=== PATIENT | male | born 1975 | race Caucasian/White ===

== ENCOUNTER 2021-08-02 20:54 | Emergency (ER) | payer BC ==
--- NOTE | 2021-08-03 01:33 | CR ---
INDICATION: cough/fever/chills for 4 days CHEST, PA AND LATERAL Upright PA and lateral radiographs of the chest were performed. Comparison: No previous studies are currently available for comparison. The lungs appear clear and there are no pleural effusions. Heart size and pulmonary vasculature appear normal. Visualized bones show no significant findings. IMPRESSION: No acute intrathoracic abnormality identified. GAVIN CURRY MD [facility] Dictated by: Brock Curry MD @ 08/03/2021 01:31:35 (Electronically Signed)
--- NOTE | 2021-08-03 02:07 | EDM.PDOC ---
ED HPI GENERAL MEDICAL PROBLEM - General Chief Complaint: Respiratory Problem Stated Complaint: HEADACHE, CHILLS, FEVER Time Seen by Provider: 08/03/21 01:13 - History of Present Illness INITIAL COMMENTS - FREE TEXT/NARRATIVE: HISTORY AND PHYSICAL: History of present illness: Is a 45-year-old gentleman with no significant past medical history who presents ER today with Covid concerns. Patient ports had headache, tactile fevers, generalized body aches for 4 days. Patient denies any nausea, vomiting, diarrhea, dysuria, frequency, urgency. Patient reports occasional cough. Patient has any shortness of breath. Patient reports came to the ED today because his symptoms have persisted for approximately 4 days which is unusual for him. Patient has not had his Covid vaccine. Patient reports he is tolerating p.o. solids and liquids well. Review of systems: As per history of present illness and below otherwise all systems reviewed and negative. Past medical history: As per history of present illness and as reviewed below otherwise noncontributory. Surgical history: As per history of present illness and as reviewed below otherwise noncontributory. Social history: No reported history of drug abuse. Family history: As per history of present illness and as reviewed below otherwise noncontributory. Physical exam: This patient was seen and evaluated during the 2019 SARS-CoV-2 novel coronavirus pandemic period. Community viral transmission is ongoing at time of this encounter and the emergency department is operating under pandemic response procedures. Constitutional: Patient is oriented to person, place, and time. Appears well- developed and well-nourished. No distress. HEENT: Moist mucous membranes Head: Normocephalic and atraumatic Eyes: Right eye exhibits no discharge. Left eye exhibits no discharge. No scleral icterus Neck: Normal range of motion. No tracheal deviation present. Cardiovascular: Normal rate and regular rhythm. Pulmonary: Effort normal, no respiratory distress. Abdominal: No distention Musculoskeletal: Normal range of motion Neurologic: Alert and oriented to person, place and time. Skin: [place], warm and dry. Psychiatric: Normal mood and affect. Behavior is normal. Judgment and thought content normal. Nursing note and vital signs have been reviewed Diagnostics: Chest Xray: Normal cardiac silhouette No infiltrates or effusions identified. No PTX No evidence of acute bony fracture. As interpreted by ER MD: Gaurav Covid test negative Therapeutics: [] Assessment and plan: 45-year-old gentleman who presents ER today with concern for Covid. Patient's Covid test is negative. Patient presentation is consistent with likely viral illness. Patient has been instructed to utilize ibuprofen and acetaminophen as needed for fever and pain. Patient is to follow-up with his primary care physician within a week for reevaluation. I have discussed with the patient the limitations of our Covid testing the possibility that this might be a false neg ative. Patient was instructed to return to the ER if he starts having any increased shortness of breath or any new or concerning symptoms. Reassessment at the time of disposition demonstrates that the patient is in no acute distress. The patient has remained stable throughout the entire ED visit and is without objective evidence for acute process requiring urgent intervention or hospitalization. The patient is stable for discharge, counseling is provided as documented above, discussed symptomatic treatment and specific conditions for return. I have spoken with the patient/caregiver and discussed todays findings, in addition to providing specific details for the plan of care. Questions are answered and there is agreement with the plan. Definitive disposition and diagnosis as appropriate pending reevaluation and review of above. Generalized Pain Score (Numeric/FACES): 7 Past Medical History - Past Health History Medical/Surgical History: Denies Medical/Surgical History Social & Family History - Family History Family Medical History: No Pertinent Family History - Caffeine Use Caffeine Use: Reports: Coffee - Recreational Drug Use Recreational Drug Use: No ED ROS GENERAL - Review of Systems Review Of Systems: See Below ED EXAM, GENERAL - Physical Exam Exam: See Below Course - Vital Signs Last Recorded V/S: Last Vital Signs Temp 98.1 F 08/03/21 00:44 Pulse 86 08/03/21 00:44 Resp 18 08/03/21 00:44 BP 112/78 08/03/21 00:44 Pulse Ox 99 08/03/21 00:44 - Orders/Labs/Meds Labs: Laboratory Tests 08/02/21 Range/Units 22:30 SARS-CoV-2 RNA (ANN) NEGATIVE (NEGATIVE) Departure - Departure Time of Disposition: 02:05 Disposition: Home, Self-Care 01 Condition: Good Clinical Impression: Viral illness, Suspected 2018 novel coronavirus infection - Discharge Information Instructions: COVID-19: What Your Test Results Mean - CDC (04/26/2020), COVID- 19: Quarantine vs. Isolation - [facility] (11/13/2020) Referrals: PCP,None [Primary Care Provider] - Additional Instructions: You were seen and evaluated in the ER today secondary to sinus symptoms that were concerning for possible Covid infection. Your Covid test is negative here. As we discussed there is a small percentage of false negative Covid tests that might occur. Please return to the ER if you start having worsening symptoms or increasing shortness of breath. Please make an appointment to see your family doctor within a week for reevaluation. You will be given the phone number for the health department in case you have any other questions or concerns regarding possible Covid infection. 1. Your COVID-19 screening is negative. Your vital signs and oxygen saturation are well enough that you were able to monitor your symptoms at home. Continue to monitor for trouble breathing, new confusion or inability to arouse, bluish lips or face or any of the other symptoms we discussed -if this occurs please return to the emergency room. 2. Please self quarantine over the next 10 days. Inform any persons that you have been in contact with since you started becoming symptomatic that you have tested positive; they should be made aware and take the appropriate steps as needed. 3. You can take NyQuil during the evening to help get a restful night sleep. May alternate Tylenol and ibuprofen as needed for pain and fever management. 4. The [facility] department will be calling you and following up with you. The [place] COVID 19 Hotline phone number , They are open Tuesday - Tuesday 7am - 7pm. Follow up with your primary care provider for re-evaluation and re-testing after the 10 day quarantine and discuss when you should be seen. The following information is given to patients seen in the emergency department who are being discharged to home. This information is to outline your options fo r follow-up care. We provide all patients seen in our emergency department with a follow-up referral. The need for follow-up, as well as the timing and circumstances, are variable depending upon the specifics of your emergency department visit. If you don't have a primary care physician on staff, we will provide you with a referral. We always advise you to contact your personal physician following an emergency department visit to inform them of the circumstance of the visit and for follow-up with them and/or the need for any referrals to a consulting specialist. The emergency department will also refer you to a specialist when appropriate. This referral assures that you have the opportunity for follow-up care with a specialist. All of these measure are taken in an effort to provide you with optimal care, which includes your follow-up. Under all circumstances we always encourage you to contact your private physician who remains a resource for coordinating your care. When calling for follow-up care, please make the office aware that this follow-up is from your recent emergency room visit. If for any reason you are refused follow-up, please contact the [facility] Emergency Department at and asked to speak to the emergency department charge nurse. [facility] [address] [place] [id number] [address] Sepsis Event Note (ED) - Focused Exam Vital Signs: Vital Signs Temp Pulse Resp BP Pulse Ox 08/03/21 00:44 98.1 F 86 18 112/78 99 08/02/21 22:14 97.4 F 105 H 18 133/78 97
== END 2021-08-03 02:15 | disposition home or self-care (01) ==
LOC: MW.ED 20:54
DX: B34.9 Viral infection, unspecified (principal); Z20.822 Contact with and (suspected) exposure to COVID-19
CPT/HCPCS: 71046; 71046-26; 99283-25; U0002